=== PATIENT | female | born 1955 | race Two or more races ===

== ENCOUNTER 2018-04-24 15:49 | Inpatient (IN) | payer BC ==
[~2018-04-24] VITALS: Ht 160 cm; Wt 40.8 kg
[2018-04-24] MEDS ORDERED: hydrALAZINE HCL IV 20 MG VIAL ONE ×2 (16:10→17:30)
[2018-04-24] MEDS ORDERED: methylPREDNISolone SOD SUCC 125 MG/2ML VIAL ONE (16:10)
[2018-04-24 16:23] LABS: BASOPHILS # (AUTO) 0.1 /CMM (0.0-0.2); BASOPHILS % (AUTO) 0.5 % (0.0-2.0); EOSINOPHILS % (AUTO) 0.5 % (0.0-6.0); HEMATOCRIT 51 % (33-45); HEMOGLOBIN 17.2 g/dL (11.5-14.8); LYMPHOCYTES % (AUTO) 6.8 % (20.0-44.0); MEAN CORPUSCULAR HGB CONC 34 g/dl (31.0-36.0); MEAN CORPUSCULAR VOLUME 90 fL (82-100); MONOCYTES # (AUTO) 1.4 /CMM (0.1-1.30); MONOCYTES % (AUTO) 9.9 % (2.0-12.0); NEUTROPHILS % (AUTO) 82.3 % (43.0-81.0); PLATELET COUNT (AUTO) 320 /CMM (150-450); RED BLOOD CELL COUNT(AUTO) 5.61 MIL/uL (4.0-5.2); WHITE BLOOD COUNT (AUTO) 14.5 K/uL (4.3-11.0)
[2018-04-24] MEDS ORDERED: hydrALAZINE HCL IV 20 MG VIAL IV ONE ×2 (16:30→17:30)
[2018-04-24] MEDS ORDERED: methylPREDNISolone SOD SUCC 125 MG/2ML VIAL IV ONE (16:30)
[2018-04-24] MEDS ORDERED: IV NS 0.9% 1,000 ML BAG IV ONE (16:30)
[2018-04-24 17:02] LABS: ALBUMIN 3.4 g/dL (3.4-5.0); ALKALINE PHOSPHATASE 173 U/L (46-116); ASPARTATE AMINOTRANSFERASE 17 U/L (15-37); B-TYPE NATRIURETIC PEPTIDE 521 PG/ML (0-125); BILIRUBIN,DIRECT 0.2 mg/dL (0.0-0.2); CALCIUM, SERUM 9.8 mg/dL (8.5-10.1); CARBON DIOXIDE 29 mmol/L (21-32); CHLORIDE 81 mmol/L (98-107); CREATININE 0.5 mg/dL (0.6-1.3); GLUCOSE 117 mg/dL (74-106); POTASSIUM 3.2 mmol/L (3.5-5.1); TOTAL PROTEIN, SERUM 8.1 g/dL (6.4-8.2); UREA NITROGEN, BLOOD 9 mg/dL (7-18)
[2018-04-24 17:04] LABS: SODIUM SERUM 117 mmol/L (136-145)
[2018-04-24 17:11] LABS: ALANINE AMINOTRANSFERASE 16 U/L (12-78)
[2018-04-24] MEDS ORDERED: LEVOFLOXACIN 750 MG /D5W 150ML PIGGYBACK IV ONE (18:00)
[2018-04-24] MEDS ORDERED: ONDANSETRON HCL/PF 4 MG/2 ML VIAL ONE (18:05)
[2018-04-24] MEDS ORDERED: LABETALOL 20 MG/4 ML VIAL ONE ×2 (18:06→18:51)
[2018-04-24] MEDS: LABETALOL HCL IV 100MG VIAL IV PRN ×2 (18:11→18:12)
[2018-04-24] MEDS ORDERED: LEVOFLOXACIN 750 MG /D5W 150ML 750 MG in PREMIX 1 EA IV ONE (18:30)
[2018-04-24] MEDS ORDERED: ONDANSETRON HCL/PF - ER 4 MG/2 ML VIAL IV ONE (18:30)
[2018-04-24] MEDS ORDERED: Z GUARD REMEDY 2 OZ OINT TP PRN (19:00)
[2018-04-24] MEDS ORDERED: MAGNESIUM HYDROXIDE 30 ML UDC PO PRN (19:00)
[2018-04-24] MEDS ORDERED: HYDROCODONE/APAP 5/325MG 1 EACH TABLET PO PRN (19:00)
[2018-04-24] MEDS ORDERED: LABETALOL HCL IV 100MG VIAL IV PRN (19:00)
[2018-04-24] MEDS ORDERED: ACETAMINOPHEN 325 MG TABLET PO PRN (19:00)
[2018-04-24] MEDS ORDERED: MAG HYDROX/AL HYDROX/SIMETH 30 ML UDC PO PRN (19:00)
[2018-04-24] MEDS ORDERED: ONDANSETRON HCL/PF 4 MG/2 ML VIAL IVP PRN (19:00)
[2018-04-24 20:00] VITALS: BP 137/85
[2018-04-24] MEDS: AZITHROMYCIN 250 MG TABLET PO SCH (20:04)
[2018-04-24] MEDS: ENOXAPARIN SODIUM 40 MG/0.4 ML DISP.SYRIN SQ SCH (20:26)
[2018-04-24] MEDS: CEFTRIAXONE 1 G in IV D5W 50 ML IV SCH (20:47)
[2018-04-24] MEDS: IV NS 0.9% 1,000 ML IV PRN (20:49)
[2018-04-24] MEDS: ALBUTEROL FS 2.5 MG/3 ML VIAL.NEB NEB SCH (21:03)
[2018-04-24] MEDS: IPRATROPIUM NEB FS 0.5 MG/2.5 ML AMPUL.NEB NEB SCH (21:03)
[2018-04-25] VITALS: BP 130/80
[2018-04-25] MEDS: IPRATROPIUM NEB FS 0.5 MG/2.5 ML AMPUL.NEB NEB SCH ×4 (01:47→19:45)
[2018-04-25] MEDS: ALBUTEROL FS 2.5 MG/3 ML VIAL.NEB NEB SCH ×4 (01:47→19:46)
[2018-04-25 04:00] VITALS: BP 152/90
[2018-04-25 07:20] LABS: BASOPHILS % (AUTO) 0.1 % (0.0-2.0); HEMATOCRIT 43 % (33-45); LYMPHOCYTES # (AUTO) 0.4 /CMM (0.8-4.8); LYMPHOCYTES % (AUTO) 5.4 % (20.0-44.0); MEAN CORPUSCULAR HGB CONC 35 g/dl (31.0-36.0); MEAN CORPUSCULAR VOLUME 89 fL (82-100); MONOCYTES # (AUTO) 0.6 /CMM (0.1-1.30); MONOCYTES % (AUTO) 7.8 % (2.0-12.0); NEUTROPHILS % (AUTO) 86.7 % (43.0-81.0); PLATELET COUNT (AUTO) 340 /CMM (150-450); RED BLOOD CELL COUNT(AUTO) 4.82 MIL/uL (4.0-5.2); WHITE BLOOD COUNT (AUTO) 8.1 K/uL (4.3-11.0)
[2018-04-25 07:55] LABS: CALCIUM, SERUM 8.8 mg/dL (8.5-10.1); CREATININE 0.6 mg/dL (0.6-1.3); MAGNESIUM 1.3 mg/dL (1.8-2.4); PHOSPHORUS 4.1 mg/dL (2.5-4.9); POTASSIUM 3.5 mmol/L (3.5-5.1)
[2018-04-25 08:00] VITALS: BP 150/91
[2018-04-25] MEDS: NICOTINE PATCH (14MG) 14 MG PATCH.TD24 TD SCH (08:28)
[2018-04-25] MEDS: methylPREDNISolone SOD SUCC 40 MG/ML VIAL IV SCH (08:28)
[2018-04-25 09:03] LABS: THYROID STIMULATING HORMONE 0.894 uIU/mL (0.358-3.74)
[2018-04-25] MEDS: IV NS 0.9% 1,000 ML IV PRN (09:46)
[2018-04-25 10:25] LABS: ABG BASE EXCESS -11.5 mmol/L; ABG OXYGEN SATURATION 94.8 % (92.0-98.5); ABG PCO2 35.1 mmHg (35.0-45.0); ABG PH 7.244 (7.350-7.450); AaDO2 84.2 mmHg; COHb 1.3 % (0.5-1.5); MetHb 0.4 % (0.0-1.5); O2Hb 93.2 % (94.0-97.0); SITE, ABG Left Brachial
[2018-04-25 12:00] VITALS: BP 148/90
[2018-04-25] MEDS ORDERED: Magnesium 1 GM/2 ML VIAL IV ONE (12:00)
[2018-04-25] MEDS: Magnesium 1GM/D5W 100ML PREMIX 100 ML IV SCH ×4 (12:16→18:33)
[2018-04-25 13:52] LABS: ABG BASE EXCESS 2.3 mmol/L; ABG OXYGEN SATURATION 93.6 % (92.0-98.5); ABG PCO2 30.9 mmHg (35.0-45.0); ABG PH 7.515 (7.350-7.450); ABG PO2 65.7 mmHg (75.0-100.0); AaDO2 97.5 mmHg; COHb 1.1 % (0.5-1.5); MetHb 0.4 % (0.0-1.5); O2Hb 92.2 % (94.0-97.0); SITE, ABG Left Brachial
[2018-04-25] MEDS ORDERED: IOHEXOL-300 100 ML VIAL IV ONE (15:18)
[2018-04-25] MEDS ORDERED: CT SWABBABLE VALVE TRANS SET 1 EA INFUS.SET MC ONE (15:18)
[2018-04-25] MEDS ORDERED: IV NS 0.9% 250 ML IV ONE (15:18)
[2018-04-25] MEDS: CEFTRIAXONE 1 G in IV D5W 50 ML IV SCH (20:40)
[2018-04-25] MEDS: AZITHROMYCIN 250 MG TABLET PO SCH (20:43)
[2018-04-25] MEDS: ENOXAPARIN SODIUM 40 MG/0.4 ML DISP.SYRIN SQ SCH (20:43)
[2018-04-25 21:00] VITALS: BP 130/72
[2018-04-25 23:25] VITALS: BP 164/104
[2018-04-26] MEDS: ALBUTEROL FS 2.5 MG/3 ML VIAL.NEB NEB SCH ×5 (01:00→19:55)
[2018-04-26] MEDS: IPRATROPIUM NEB FS 0.5 MG/2.5 ML AMPUL.NEB NEB SCH ×5 (01:13→19:55)
[2018-04-26] MEDS: IV NS 0.9% 1,000 ML IV PRN ×2 (06:25→21:03)
[2018-04-26 08:00] VITALS: BP 180/99
[2018-04-26] MEDS ORDERED: CLONIDINE HCL 0.1 MG TABLET PO PRN (08:30)
[2018-04-26 08:32] LABS: BASOPHILS % (AUTO) 0.2 % (0.0-2.0); EOSINOPHILS % (AUTO) 0.1 % (0.0-6.0); HEMATOCRIT 45 % (33-45); HEMOGLOBIN 15.2 g/dL (11.5-14.8); LYMPHOCYTES # (AUTO) 0.8 /CMM (0.8-4.8); LYMPHOCYTES % (AUTO) 4.7 % (20.0-44.0); MEAN CORPUSCULAR HGB CONC 34 g/dl (31.0-36.0); MEAN CORPUSCULAR VOLUME 91 fL (82-100); MONOCYTES # (AUTO) 1.6 /CMM (0.1-1.30); MONOCYTES % (AUTO) 9.7 % (2.0-12.0); NEUTROPHILS # (AUTO) 13.7 /CMM (1.8-8.9); NEUTROPHILS % (AUTO) 85.3 % (43.0-81.0); PLATELET COUNT (AUTO) 321 /CMM (150-450); WHITE BLOOD COUNT (AUTO) 16.1 K/uL (4.3-11.0)
[2018-04-26] MEDS: methylPREDNISolone SOD SUCC 40 MG/ML VIAL IV SCH (08:44)
[2018-04-26] MEDS: NICOTINE PATCH (14MG) 14 MG PATCH.TD24 TD SCH (08:44)
[2018-04-26 08:48] LABS: CREATININE 0.5 mg/dL (0.6-1.3); MAGNESIUM 1.9 mg/dL (1.8-2.4); PHOSPHORUS 2.9 mg/dL (2.5-4.9); POTASSIUM 3.4 mmol/L (3.5-5.1)
[2018-04-26 10:00] VITALS: BP 158/96
[2018-04-26] MEDS ORDERED: POTASSIUM CHLORIDE 20 MEQ TAB.PRT.SR PO SCH (11:00)
[2018-04-26 16:00] VITALS: BP 164/101
[2018-04-26] MEDS ORDERED: CT SWABBABLE VALVE TRANS SET 1 EA INFUS.SET MC ONE (16:11)
[2018-04-26] MEDS ORDERED: IOHEXOL-300 100 ML VIAL IV ONE (16:11)
[2018-04-26] MEDS ORDERED: IV NS 0.9% 250 ML IV ONE (16:12)
[2018-04-26] MEDS: CLONIDINE HCL 0.1 MG TABLET PO PRN (17:38)
[2018-04-26] MEDS: ACETYLCYSTEINE 10% 3,000 MG/30 ML VIAL PO SCH (18:07)
[2018-04-26 18:45] VITALS: BP 121/65
[2018-04-26 20:00] VITALS: BP 109/70
[2018-04-26] MEDS: CARVEDILOL 3.125 MG TABLET PO SCH (20:39)
[2018-04-26] MEDS: CEFTRIAXONE 1 G in IV D5W 50 ML IV SCH (20:39)
[2018-04-26] MEDS: AZITHROMYCIN 250 MG TABLET PO SCH (20:39)
[2018-04-26] MEDS: ENOXAPARIN SODIUM 40 MG/0.4 ML DISP.SYRIN SQ SCH (20:39)
[2018-04-27] MEDS: IPRATROPIUM NEB FS 0.5 MG/2.5 ML AMPUL.NEB NEB SCH ×4 (01:33→20:24)
[2018-04-27] MEDS: ALBUTEROL FS 2.5 MG/3 ML VIAL.NEB NEB SCH ×4 (01:33→20:24)
[2018-04-27 08:00] VITALS: BP 140/90
[2018-04-27] MEDS: NICOTINE PATCH (14MG) 14 MG PATCH.TD24 TD SCH (08:23)
[2018-04-27] MEDS: CARVEDILOL 3.125 MG TABLET PO SCH ×2 (08:23→20:27)
[2018-04-27] MEDS: methylPREDNISolone SOD SUCC 40 MG/ML VIAL IV SCH (08:42)
[2018-04-27] MEDS: ACETYLCYSTEINE 10% 3,000 MG/30 ML VIAL PO SCH (10:00)
[2018-04-27] MEDS: IV NS 0.9% 1,000 ML IV PRN (14:06)
[2018-04-27 16:00] VITALS: BP 118/84
[2018-04-27 20:00] VITALS: BP 161/111
[2018-04-27] MEDS: CEFTRIAXONE 1 G in IV D5W 50 ML IV SCH (20:26)
[2018-04-27] MEDS: AZITHROMYCIN 250 MG TABLET PO SCH (20:42)
[2018-04-28] MEDS ORDERED: IV D5/ 0.9% NACL 1,000 ML IV ONE
[2018-04-28] MEDS: ALBUTEROL FS 2.5 MG/3 ML VIAL.NEB NEB SCH ×4 (01:28→19:11)
[2018-04-28] MEDS: IPRATROPIUM NEB FS 0.5 MG/2.5 ML AMPUL.NEB NEB SCH ×4 (01:28→19:11)
[2018-04-28] MEDS: CLONIDINE HCL 0.1 MG TABLET PO PRN ×2 (02:02→12:14)
[2018-04-28 06:12] LABS: BASOPHILS % (AUTO) 0.1 % (0.0-2.0); EOSINOPHILS % (AUTO) 0.6 % (0.0-6.0); HEMATOCRIT 44 % (33-45); HEMOGLOBIN 15.1 g/dL (11.5-14.8); LYMPHOCYTES # (AUTO) 1.2 /CMM (0.8-4.8); LYMPHOCYTES % (AUTO) 8.3 % (20.0-44.0); MEAN CORPUSCULAR HGB CONC 34 g/dl (31.0-36.0); MEAN CORPUSCULAR VOLUME 90 fL (82-100); MONOCYTES # (AUTO) 1.4 /CMM (0.1-1.30); MONOCYTES % (AUTO) 9.8 % (2.0-12.0); NEUTROPHILS # (AUTO) 11.6 /CMM (1.8-8.9); NEUTROPHILS % (AUTO) 81.2 % (43.0-81.0); PLATELET COUNT (AUTO) 304 /CMM (150-450); RED BLOOD CELL COUNT(AUTO) 4.92 MIL/uL (4.0-5.2); WHITE BLOOD COUNT (AUTO) 14.3 K/uL (4.3-11.0)
[2018-04-28 06:59] LABS: CALCIUM, SERUM 8.8 mg/dL (8.5-10.1); CREATININE 0.5 mg/dL (0.6-1.3); MAGNESIUM 1.4 mg/dL (1.8-2.4); PHOSPHORUS 2.9 mg/dL (2.5-4.9); POTASSIUM 3.1 mmol/L (3.5-5.1)
[2018-04-28 08:29] VITALS: BP 150/100
[2018-04-28] MEDS: methylPREDNISolone SOD SUCC 40 MG/ML VIAL IV SCH (08:34)
[2018-04-28] MEDS: NICOTINE PATCH (14MG) 14 MG PATCH.TD24 TD SCH (08:34)
[2018-04-28] MEDS: CARVEDILOL 3.125 MG TABLET PO SCH ×2 (08:34→20:41)
[2018-04-28] MEDS: POTASSIUM CHLORIDE 20 MEQ TAB.PRT.SR PO SCH ×2 (10:11→10:40)
[2018-04-28] MEDS: Magnesium 1GM/D5W 100ML PREMIX 100 ML IV SCH ×4 (10:11→13:37)
[2018-04-28] MEDS: ACETYLCYSTEINE 10% 3,000 MG/30 ML VIAL PO SCH (10:13)
[2018-04-28] MEDS ORDERED: LIDOCAINE 5% OINT 35.44 GM TUBE ONE (15:19)
[2018-04-28] MEDS ORDERED: ANESTHESIA TRAY IN PYXIS 1 EA TRAY MC ONE (15:29)
[2018-04-28 16:00] VITALS: BP 145/86
[2018-04-28] MEDS ORDERED: HYDROCODONE BIT/HOMATROPINE 5 ML UDC PO PRN (16:00)
[2018-04-28 20:00] VITALS: BP 154/104
[2018-04-28] MEDS: AZITHROMYCIN 250 MG TABLET PO SCH (20:35)
[2018-04-28] MEDS: CEFTRIAXONE 1 G in IV D5W 50 ML IV SCH (20:35)
[2018-04-29] MEDS: IV NS 0.9% 1,000 ML IV PRN ×2 (00:22→16:35)
[2018-04-29] MEDS: IPRATROPIUM NEB FS 0.5 MG/2.5 ML AMPUL.NEB NEB SCH ×4 (00:51→19:11)
[2018-04-29] MEDS: ALBUTEROL FS 2.5 MG/3 ML VIAL.NEB NEB SCH ×4 (00:51→19:11)
[2018-04-29 06:32] LABS: BASOPHILS % (AUTO) 0.2 % (0.0-2.0); EOSINOPHILS % (AUTO) 0.6 % (0.0-6.0); HEMATOCRIT 43 % (33-45); HEMOGLOBIN 14.7 g/dL (11.5-14.8); LYMPHOCYTES # (AUTO) 1.1 /CMM (0.8-4.8); LYMPHOCYTES % (AUTO) 10.5 % (20.0-44.0); MEAN CORPUSCULAR HGB CONC 34 g/dl (31.0-36.0); MEAN CORPUSCULAR VOLUME 91 fL (82-100); MONOCYTES # (AUTO) 1.4 /CMM (0.1-1.30); MONOCYTES % (AUTO) 13.7 % (2.0-12.0); NEUTROPHILS # (AUTO) 7.8 /CMM (1.8-8.9); PLATELET COUNT (AUTO) 281 /CMM (150-450); RED BLOOD CELL COUNT(AUTO) 4.78 MIL/uL (4.0-5.2); WHITE BLOOD COUNT (AUTO) 10.4 K/uL (4.3-11.0)
[2018-04-29 07:03] LABS: ALBUMIN 2.6 g/dL (3.4-5.0); BILIRUBIN,TOTAL 0.4 mg/dL (0.2-1.0); CREATININE 0.5 mg/dL (0.6-1.3); PHOSPHORUS 3.7 mg/dL (2.5-4.9); POTASSIUM 3.7 mmol/L (3.5-5.1); TOTAL PROTEIN, SERUM 6.3 g/dL (6.4-8.2)
[2018-04-29 08:00] VITALS: BP 173/102
[2018-04-29] MEDS: methylPREDNISolone SOD SUCC 40 MG/ML VIAL IV SCH (08:29)
[2018-04-29] MEDS: NICOTINE PATCH (14MG) 14 MG PATCH.TD24 TD SCH (08:30)
[2018-04-29] MEDS: CARVEDILOL 3.125 MG TABLET PO SCH ×2 (08:30→20:33)
[2018-04-29] MEDS: CLONIDINE HCL 0.1 MG TABLET PO PRN ×2 (08:37→21:55)
[2018-04-29 10:30] VITALS: BP 110/73
[2018-04-29 16:00] VITALS: BP 136/83
[2018-04-29] MEDS: AZITHROMYCIN 250 MG TABLET PO SCH (19:49)
[2018-04-29] MEDS: CEFTRIAXONE 1 G in IV D5W 50 ML IV SCH (20:32)
[2018-04-30] VITALS: BP 149/86
[2018-04-30] MEDS: ALBUTEROL FS 2.5 MG/3 ML VIAL.NEB NEB SCH ×3 (01:21→13:30)
[2018-04-30] MEDS: IPRATROPIUM NEB FS 0.5 MG/2.5 ML AMPUL.NEB NEB SCH ×3 (01:21→13:30)
[2018-04-30] MEDS: IV NS 0.9% 1,000 ML IV PRN (05:33)
[2018-04-30] MEDS: CLONIDINE HCL 0.1 MG TABLET PO PRN (08:08)
[2018-04-30] MEDS: CARVEDILOL 3.125 MG TABLET PO SCH (08:08)
[2018-04-30] MEDS: NICOTINE PATCH (14MG) 14 MG PATCH.TD24 TD SCH (08:09)
[2018-04-30] MEDS ORDERED: methylPREDNISolone SOD SUCC 40 MG/ML VIAL IV SCH (09:00)
[2018-04-30 16:38] VITALS: BP 146/83
== END 2018-04-30 16:41 | disposition home or self-care (01) | DRG 166 ==
LOC: ER 15:56 → TELE1 18:01 → MEDSG1 04-25 09:45 → MEDSG2 04-25 22:13 → MED 04-27 05:25
PROVIDERS: ADMIT Registered Nurse; ATTEND Nurse Practitioner Acute Care
PROC: 0W993ZZ Drainage of Right Pleural Cavity, Percutaneous Approach (ICD-10-PCS; 2018-04-27)
PROC: 0BDC8ZX Extraction of Right Upper Lung Lobe, Via Natural or Artificial Opening Endoscopic, Diagnostic (ICD-10-PCS; principal; 2018-04-28)
PROC: 0BBC8ZX Excision of Right Upper Lung Lobe, Via Natural or Artificial Opening Endoscopic, Diagnostic (ICD-10-PCS; principal; 2018-04-28)
DX: J15.9 Unspecified bacterial pneumonia (principal); J96.01 Acute respiratory failure with hypoxia; E43 Unspecified severe protein-calorie malnutrition; C34.11 Malignant neoplasm of upper lobe, right bronchus or lung; J44.1 Chronic obstructive pulmonary disease with (acute) exacerbation; I16.1 Hypertensive emergency; E87.2 Acidosis; Z68.1 Body mass index [BMI] 19.9 or less, adult; J44.0 Chronic obstructive pulmonary disease with (acute) lower respiratory infection; E22.2 Syndrome of inappropriate secretion of antidiuretic hormone; J91.0 Malignant pleural effusion; I10 Essential (primary) hypertension; E87.6 Hypokalemia; E86.0 Dehydration; Z87.891 Personal history of nicotine dependence; E83.42 Hypomagnesemia; F41.9 Anxiety disorder, unspecified; I44.4 Left anterior fascicular block; J40 Bronchitis, not specified as acute or chronic; F10.10 Alcohol abuse, uncomplicated; E77.8 Other disorders of glycoprotein metabolism; K86.9 Disease of pancreas, unspecified
CPT/HCPCS: 36415; 36600; 71045-TC; 71260-TC; 74178; 76942-TC; 80048-TC; 80053-TC; 80061-TC; 80076-TC; 82803-TC; 83605-TC; 83690-TC; 83735-TC; 83880; 84100-TC; 84443-TC; 84484-TC; 85025-TC; 85610-TC; 86301; 87040-TC; 87070-TC; 87075-TC; 87081-TC; 87102-TC; 87400; 88305-TC; 88312-TC; 89051-TC; 94799-TC; A4216; A6402; G0378; J0330; J0360; J0696; J1650; J1956; J2370; J2405; J2704; J2920; J2930; J3475; J3490; J7030; J7042; J7050; J7060; Q9967